=== PATIENT | male | born 1955 | race Caucasian/White ===

== ENCOUNTER 2017-07-30 11:21 | Emergency (ER) | payer OTHER ==
[~2017-07-30] VITALS: Ht 170.2 cm; Wt 70.3 kg
[2017-07-30 11:49] VITALS: Ht 170.2 cm; Wt 70.3 kg
[2017-07-30 13:13] VITALS: BP 119/67
== END 2017-07-30 13:13 | disposition home or self-care (01) ==
LOC: ED 11:21
DX: R42 Dizziness and giddiness (principal); R11.10 Vomiting, unspecified; E78.00 Pure hypercholesterolemia, unspecified

== ENCOUNTER 2018-12-04 02:18 | Emergency (ER) | payer OTHER ==
[~2018-12-04] VITALS: Ht 170.2 cm; Wt 73.5 kg
[2018-12-04 02:20] VITALS: Ht 170.2 cm; Wt 73.5 kg
[2018-12-04 03:03] LABS: BASOPHIL % 0.3 % (0-2); PLATELET COUNT 243 x10^3mcL (130-400); RED CELL DISTRIBUTION WIDTH 13.2 % (11.5-14.5)
[2018-12-04 03:07] LABS: CALCIUM 8.5 mg/dL (8.5-10.1); CARBON DIOXIDE 21.4 mmol/L (21-32); CHLORIDE SERUM 103 mmol/L (98-107); CREATININE SERUM 1.2 mg/dL (0.7-1.3); GFR1 > 60 mL/min; GLUCOSE SERUM 166 mg/dL (74-106); POTASSIUM SERUM 3.3 mmol/L (3.5-5.1); SODIUM SERUM 139 mmol/L (136-145)
[2018-12-04 03:15] LABS: ALBUMIN 3.9 g/dL (3.4-5.0); ALKALINE PHOSPHATASE 43 U/L (46-116); ALT/SGPT 27 U/L (16-63); AST/SGOT 16 U/L (15-37); BILIRUBIN TOTAL 0.7 mg/dL (0.20-1.00); LIPASE 148 IU/L (73-393); TOTAL PROTEIN, SERUM 7.3 g/dL (6.4-8.2)
[2018-12-04 05:16] VITALS: BP 103/50
== END 2018-12-04 05:16 | disposition home or self-care (01) ==
LOC: ED 02:18
PROVIDERS: Emergency Medicine
DX: N23 Unspecified renal colic (principal); E78.00 Pure hypercholesterolemia, unspecified
CPT/HCPCS: J1885; J2405; J7030